=== PATIENT | male | born 1975 | race Caucasian/White ===

== ENCOUNTER 2022-03-02 08:35 | Emergency (ER) | payer SELFPAY ==
[~2022-03-02] VITALS: Ht 172.7 cm; Wt 95.3 kg
[2022-03-02 08:37] VITALS: BP 144/67
--- NOTE | 2022-03-02 08:43 | NUR ---
PT AMBULATED TO LOBBY.
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
[2022-03-02] MEDS ORDERED: ACET-10509 PO (09:30)
[2022-03-02] MEDS ORDERED: IBUP-2213 PO (09:30)
== END 2022-03-02 09:50 | disposition home or self-care (01) ==
LOC: MED 08:35
DX: M54.2 Cervicalgia (principal); M54.9 Dorsalgia, unspecified; Z79.899 Other long term (current) drug therapy; V89.2XXA Person injured in unspecified motor-vehicle accident, traffic, initial encounter; Y93.89 Activity, other specified; Y92.89 Other specified places as the place of occurrence of the external cause; Y99.8 Other external cause status
CPT/HCPCS: 99283